=== PATIENT | female | born 1980 | race Caucasian/White ===

== ENCOUNTER 2016-12-05 11:59 | Inpatient (IN) | payer MEDICAID, MEDICARE ==
[~2016-12-05] VITALS: Ht 157.5 cm; Wt 46.0 kg
[~2016-12-05 11:59] MED LIST: OLAN10TA22 PO
[2016-12-05 12:27] LABS: BASOPHILS % (AUTO) 0.3 % (0.0-2.0); EOSINOPHILS % (AUTO) 1.9 % (1.0-6.0); HEMATOCRIT 34.3 % (36-46); HEMOGLOBIN 11.1 g/dL (12.0-16.0); LYMPHOCYTES # (AUTO) 2.2 K/uL (1.0-4.8); LYMPHOCYTES % (AUTO) 23.8 % (22.0-44.0); MEAN CORPUSCULAR HEMOGLOBIN 24.9 pg (26.0-34.0); MEAN CORPUSCULAR HGB CONC 32.2 G/dL (31.0-37.0); MEAN CORPUSCULAR VOLUME 77 fL (80-100); MONOCYTES # (AUTO) 0.7 K/uL (0.1-1.0); MONOCYTES % (AUTO) 7.9 % (2.0-9.0); NEUTROPHILS # (AUTO) 6.2 K/uL (1.8-7.7); NEUTROPHILS % (AUTO) 66.1 % (40.0-70.0); PLATELET COUNT (AUTO) 388 K/uL (150-450); RED BLOOD CELL COUNT(AUTO) 4.44 MIL/uL (4.00-5.20); RED CELL DISTRIBUTION WIDTH 16.7 % (11.5-14.5); WHITE BLOOD COUNT (AUTO) 9.4 K/uL (4.5-11.0)
[2016-12-05 12:51] LABS: RBC MORPHOLOGY COMMENT ABNORMAL RBC MORPH
[2016-12-05 12:52] LABS: ALANINE AMINOTRANSFERASE 21 U/L (12-78); ANION GAP 17 mmol/L (8-16); ASPARTATE AMINOTRANSFERASE 16 U/L (15-37); BILIRUBIN,TOTAL 0.5 mg/dL (0.1-1.0); CALCIUM, TOTAL 9.2 mg/dL (8.8-10.5); CARBON DIOXIDE 20 mmol/L (22-29); CHLORIDE 105 mmol/L (98-107); CREATININE 1.08 mg/dL (0.60-1.30); GLOMERULAR FILTR. RATE CALC 57 mL/min (>60); POTASSIUM 3.6 mmol/L (3.5-5.1); SODIUM SERUM 142 mmol/L (136-145); TOTAL PROTEIN, SERUM 7.8 g/dL (6.4-8.2)
[2016-12-05 13:02] LABS: UREA NITROGEN, BLOOD 17 mg/dL (7-18)
[2016-12-05] MEDS ORDERED: MAG HYDROX/AL HYDROX/SIMETH ES 30 ML SUSPENSION UDCUP PO PRN (13:30)
[2016-12-05] MEDS ORDERED: GuaiFENesin/D-METHORPHAN [SUGAR-FREE] 200-20MG/10 ML SYRUP UDCUP PO PRN (13:30)
[2016-12-05] MEDS ORDERED: LOPERAMIDE HCL 2 MG CAPSULE PO PRN (13:30)
[2016-12-05] MEDS ORDERED: OLANZapine 5 MG RAPDIS TABLET PO PRN (13:30)
[2016-12-05] MEDS ORDERED: PROMETHAZINE HCL 25 MG TABLET PO PRN (13:30)
[2016-12-05] MEDS ORDERED: MAGNESIUM HYDROXIDE SUSPENSION 30 ML UDCUP PO PRN (13:30)
[2016-12-05] MEDS ORDERED: LORazepam 2 MG TABLET PO PRN (13:30)
[2016-12-05] MEDS ORDERED: ZOLPIDEM TARTRATE 10 MG TABLET PO PRN (13:30)
[2016-12-05] MEDS ORDERED: ACETAMINOPHEN 325 MG TABLET PO PRN (13:30)
[2016-12-05] MEDS ORDERED: HydrOXYzine PAMOATE 50 MG CAPSULE PO PRN (13:30)
[2016-12-05] MEDS ORDERED: DiphenhydrAMINE HCL 50 MG/ML VIAL IM ONE (14:15)
[2016-12-05] MEDS ORDERED: HALOPERIDOL LACTATE 5 MG/ML VIAL IM ONE (14:15)
[2016-12-05] MEDS ORDERED: LORazepam 2 MG/ML VIAL IM ONE (14:15)
[2016-12-05 16:36] LABS: APPEARANCE,URINE CLOUDY (CLEAR); GLUCOSE, URINE (UA) NEGATIVE (NEGATIVE); KETONES,URINE >=80 mg/dL (NEGATIVE); LEUKOCYTE ESTERASE ,URINE NEGATIVE (NEGATIVE); OCCULT BLOOD,URINE NEGATIVE (NEGATIVE); PROTEIN,URINE POS 1+ (NEGATIVE)
[2016-12-05 16:38] LABS: ADD UA MICROSCOPIC NO
[2016-12-05] MEDS: THIAMINE HCL 100 MG TABLET PO SCH (17:00)
[2016-12-05] MEDS ORDERED: INFLUENZA VIRUS VACCINE QVS 2016-17 (3YR+)/PF 60 MCG/0.5 ML SYRINGE IM ONE (18:15)
[2016-12-05] MEDS: OLANZapine 10 MG RAPDIS TABLET PO SCH (21:00)
[2016-12-06] MEDS: FOLIC ACID 1 MG TABLET PO SCH (09:00)
[2016-12-06] MEDS: THIAMINE HCL 100 MG TABLET PO SCH ×2 (09:00→17:00)
[2016-12-06] MEDS: MULTIVITAMINS WITH MINERALS, THERAPEUTIC TABLET PO SCH (09:00)
[2016-12-06] MEDS: OLANZapine 10 MG RAPDIS TABLET PO SCH (20:28)
[2016-12-06] MEDS ORDERED: CloNIDine HCL 0.1 MG TABLET PO PRN (22:00)
[2016-12-06] MEDS ORDERED: IBUPROFEN 400 MG TABLET PO PRN (22:00)
[2016-12-06] MEDS ORDERED: ACETAMINOPHEN 325 MG TABLET PO PRN (22:00)
[2016-12-07] MEDS: FOLIC ACID 1 MG TABLET PO SCH (08:41)
[2016-12-07] MEDS: MULTIVITAMINS WITH MINERALS, THERAPEUTIC TABLET PO SCH (08:41)
[2016-12-07] MEDS: THIAMINE HCL 100 MG TABLET PO SCH ×2 (08:41→17:00)
[2016-12-07] MEDS: OLANZapine 10 MG RAPDIS TABLET PO SCH (20:37)
[2016-12-08] MEDS: FERROUS SULFATE 325 MG EC TABLET PO SCH ×2 (07:09→16:38)
[2016-12-08 08:34] VITALS: BP 114/71
[2016-12-08] MEDS: MULTIVITAMINS WITH MINERALS, THERAPEUTIC TABLET PO SCH (09:50)
[2016-12-08] MEDS: THIAMINE HCL 100 MG TABLET PO SCH ×2 (09:50→16:37)
[2016-12-08] MEDS: FOLIC ACID 1 MG TABLET PO SCH (09:50)
[2016-12-08 17:26] VITALS: BP 112/73
[2016-12-08] MEDS ORDERED: NALT50 PO (17:45)
[2016-12-08] MEDS ORDERED: PALI234D IM (17:45)
[2016-12-08] MEDS ORDERED: PALIPERIDONE PALMITATE 234 MG/1.5 ML SYRINGE IM ONE (17:45)
[2016-12-08] MEDS: OLANZapine 10 MG RAPDIS TABLET PO SCH (20:48)
[2016-12-09] MEDS: FERROUS SULFATE 325 MG EC TABLET PO SCH (06:58)
[2016-12-09 08:40] VITALS: BP 99/64
[2016-12-09] MEDS: FOLIC ACID 1 MG TABLET PO SCH (08:52)
[2016-12-09] MEDS: THIAMINE HCL 100 MG TABLET PO SCH (08:53)
[2016-12-09] MEDS: MULTIVITAMINS WITH MINERALS, THERAPEUTIC TABLET PO SCH (08:53)
[2016-12-09] MEDS ORDERED: NALTREXONE HCL 50 MG TABLET PO SCH (09:00)
[2017-01-05] MEDS ORDERED: PALIPERIDONE PALMITATE 234 MG/1.5 ML SYRINGE IM SCH (09:00)
== END 2016-12-09 12:14 | disposition home or self-care (01) | DRG 885 ==
LOC: EDUNIT# 11:59 → EMS 12:03 → 3EC 15:52
PROVIDERS: ADMIT Psychiatry & Neurology Psychiatry; ATTEND Psychiatry & Neurology Psychiatry
PROC: GZ51ZZZ Individual Psychotherapy, Behavioral (ICD-10-PCS; principal; 2016-12-05)
DX: F25.9 Schizoaffective disorder, unspecified (principal); F20.0 Paranoid schizophrenia; D64.9 Anemia, unspecified; I10 Essential (primary) hypertension; F15.10 Other stimulant abuse, uncomplicated; F12.90 Cannabis use, unspecified, uncomplicated; F17.210 Nicotine dependence, cigarettes, uncomplicated; Z59.0 Homelessness; Z91.19 Patient's noncompliance with other medical treatment and regimen; Z28.21 Immunization not carried out because of patient refusal
CPT/HCPCS: 96372; 99285; G0480; J1200; J1630; J2060